=== PATIENT | male | born 1990 | race Caucasian/White ===

== ENCOUNTER 2020-03-03 12:24 | Emergency (ER) | payer MEDICAID, OTHER ==
[~2020-03-03] VITALS: Ht 177.8 cm; Wt 90.7 kg
[~2020-03-03 12:24] MED LIST: CITA10TA9; HYDR-3980; NEO/5DRO18; PANT40TA49
--- NOTE | 2020-03-03 12:25 | NUR ---
BIB [facility] FROM HOME,ETOH, "WANTS HIS MOM" PER EMS. VS CHECKED. AWAITING MD SHARMA.
--- NOTE | 2020-03-03 12:30 | NUR ---
SEEN BY Manjula
--- NOTE | 2020-03-03 12:39 | NUR ---
[facility]
[2020-03-03] MEDS ORDERED: FOLIC ACID 1 MG TABLET PO ONE (13:30)
[2020-03-03] MEDS ORDERED: IV NS 0.9% 1,000 ML IV ONE (13:30)
[2020-03-03] MEDS ORDERED: THIAMINE HCL 100 MG TABLET PO ONE (13:30)
[2020-03-03] MEDS ORDERED: FOLIC ACID 1 MG TABLET ONE (13:36)
[2020-03-03] MEDS ORDERED: THIAMINE HCL 100 MG TABLET ONE (13:36)
--- NOTE | 2020-03-03 14:00 | NUR ---
This SW met with the patient at bedside. Patient is here for alcohol withdrawal. Patient is a 29 year-old male. Patient is able to make needs known at this time. Patient was receptive to speaking with this SW. Patient reported to this SW that he has been drinking several times a day and reported drinking 7 beers this morning. Patient denies drug and cigarette use. Patient reported pain in his stomach and asked this SW to notify RN after this assessment is over. Patient reported to this SW that he has felt sad and isolated due to the COVID-19 pandemic. Patient denied suicidal and homicidal ideation. Patient denied visual and auditory hallucinations. Patient and SW discussed community resources including substance use programs and mental health clinics, patient was receptive to receiving them. Patient was cooperative and calm throughout this assessment. Patient able to make needs known. No further SS interventions are needed at this time. SW provided the following resources to this patient: Substance Abuse resources provided included: [facility] Substance Abuse Self-Helpline ([facility]) ; [facility] [address] [facility]. [place] [address] ; [facility] [address] [facility] [address] ; [facility] [address] [facility] [id number] ; [facility] [address] [facility] [address] ; [facility] [address] [facility] [address] ; [facility] [address] [facility] [address] ; [facility] Substance Abuse Helpline([facility] ; [facility] ; [facility] [place]; [facility] [place]; [facility] [place]; [facility] [place]; [facility]; [facility]; [facility], [facility]. Ramon Mary; Alcoholics Anonymous -[facility]; [facility] ; Marijuana Anonymous [facility]; Narcotics Anonymous www.na.org. Mental Health resources provided: [facility] [address] [place] [address] ; [facility] [address] [facility] [address], [place] [address] ; [facility] [address] [place] [address] ; [facility] [address] [place] [address] Healthcare Clinics: [facility] [address] [facility], [address] [place]. [place] ; [facility] [address] [facility] [address] [place] [address]; [facility] [address] [facility] [place] [address] [phone]
--- NOTE | 2020-03-03 14:04 | NUR ---
TERESA BLUM [phone]
--- NOTE | 2020-03-03 15:31 | NUR ---
CALLED [facility] [phone] MOM, SHE WILL BE HERE IN 20 MINS TO [employer].
--- NOTE | 2020-03-03 16:32 | NUR ---
patient able to ambulate w steady gait, would like to be discharged
--- NOTE | 2020-03-03 16:41 | NUR ---
Patient discharged to home in stable condition. Written and verbal after care instructions given. Patient verbalizes understanding of instruction. Patient ambulatory with steady gait. Refused to sign DC paper.
[2020-03-03 16:43] VITALS: BP 136/84
== END 2020-03-03 16:43 | disposition home or self-care (01) ==
LOC: ER 12:29
DX: F10.229 Alcohol dependence with intoxication, unspecified (principal); F32.9 Major depressive disorder, single episode, unspecified; E86.0 Dehydration; F17.200 Nicotine dependence, unspecified, uncomplicated; E11.9 Type 2 diabetes mellitus without complications; Z60.2 Problems related to living alone; Z79.899 Other long term (current) drug therapy; Y90.9 Presence of alcohol in blood, level not specified
CPT/HCPCS: 96360; 99283; J7030 ×2

== ENCOUNTER 2023-05-03 03:29 | Emergency (ER) | payer OTHER ==
[~2023-05-03] VITALS: Ht 177.8 cm; Wt 90.7 kg
[2023-05-03] MEDS ORDERED: ONDANSETRON HCL/PF 4 MG/2 ML VIAL ONE (03:45)
[2023-05-03] MEDS ORDERED: MORPHINE SULFATE INJ 4 MG/ML DISP.SYRIN ONE ×2 (03:45→04:44)
[2023-05-03] MEDS: IV NS 0.9% 1,000 ML BAG IV ONE (03:53)
[2023-05-03] MEDS: MORPHINE SULFATE INJ 2 MG/ML DISP.SYRIN IV ONE ×2 (03:54→04:51)
[2023-05-03] MEDS: ONDANSETRON HCL/PF 4 MG/2 ML VIAL IVP ONE (03:54)
[2023-05-03] MEDS ORDERED: PANTOPRAZOLE 40 MG VIAL ONE (04:00)
[2023-05-03] MEDS ORDERED: OCTREOTIDE 100 MCG/ML VIAL ONE (04:01)
[2023-05-03] MEDS ORDERED: OCTREOTIDE 500 MCG/ML VIAL ONE (04:02)
[2023-05-03 04:10] LABS: BASOPHILS % (AUTO) 0.6 % (0.0-2.0); EOSINOPHILS # (AUTO) 0.3 K/uL (0.0-0.7); EOSINOPHILS % (AUTO) 3.9 % (0.0-6.0); HEMATOCRIT 44 % (39-51); HEMOGLOBIN 15.5 g/dL (13.5-17.5); LYMPHOCYTES # (AUTO) 2.8 K/uL (0.8-4.8); LYMPHOCYTES % (AUTO) 36.6 % (20.0-44.0); MEAN CORPUSCULAR HEMOGLOBIN 31 PG (26.0-33.0); MEAN CORPUSCULAR HGB CONC 36 g/dl (31.0-36.0); MEAN CORPUSCULAR VOLUME 87 fL (80-96); MONOCYTES # (AUTO) 0.4 K/uL (0.1-1.30); MONOCYTES % (AUTO) 5.5 % (2.0-12.0); NEUTROPHILS # (AUTO) 4.1 K/uL (1.8-8.9); NEUTROPHILS % (AUTO) 53.4 % (43.0-81.0); PLATELET COUNT (AUTO) 162 K/uL (150-450); RED BLOOD CELL COUNT(AUTO) 5.04 MIL/uL (4.5-6.0); RED CELL DISTRIBUTION WIDTH 13.1 % (11.5-15.0); WHITE BLOOD COUNT (AUTO) 7.8 K/uL (4.3-11.0)
[2023-05-03] MEDS: OCTREOTIDE 50 MCG/ML AMPUL IV ONE (04:10)
[2023-05-03] MEDS: PANTOPRAZOLE 80 MG in IV NS 0.9% 100 ML IV ONE (04:10)
[2023-05-03 04:31] LABS: INR 0.98 (0.91-1.10); PARTIAL THROMBOPLASTIN TIME 25.3 SEC (24.3-34.3); PROTHROMBIN TIME 10.4 SECS (9.2-11.1)
[2023-05-03] MEDS: PANTOPRAZOLE 80 MG in IV NS 0.9% 500 ML IV ONE (04:35)
[2023-05-03 04:40] LABS: ALBUMIN 4.1 g/dL (3.4-5.0); BILIRUBIN,DIRECT 0.1 mg/dL (0.0-0.2); BILIRUBIN,TOTAL 0.5 mg/dL (0.2-1.0); CALCIUM, SERUM 8.5 mg/dL (8.5-10.1); CREATININE 0.7 mg/dL (0.6-1.3); POTASSIUM 3.7 mmol/L (3.5-5.1); TOTAL PROTEIN, SERUM 7.6 g/dL (6.4-8.2)
[2023-05-03] MEDS: OCTREOTIDE 1,250 MCG in IV NS 0.9% 250 ML IV ONE (04:50)
[2023-05-03 05:44] VITALS: BP 127/76; TEMP 98; O2SAT 98
== END 2023-05-03 05:45 | disposition left against medical advice (07) ==
LOC: ER 03:35
DX: K92.2 Gastrointestinal hemorrhage, unspecified (principal); F10.129 Alcohol abuse with intoxication, unspecified; R10.13 Epigastric pain; F17.200 Nicotine dependence, unspecified, uncomplicated; Z79.899 Other long term (current) drug therapy
CPT/HCPCS: 99285; 74176; 96365; 96375; 96368; 96376; 85025; 80048; 83690; 80076; 36415; 85730; 86850; J2270 ×2; J2405; J7030 ×3; J7050 ×2; J7040; C9113 ×2; J2354 ×4; A4223 ×3

== ENCOUNTER 2024-03-27 17:55 | Emergency (ER) | payer OTHER ==
[~2024-03-27] VITALS: Ht 167.6 cm; Wt 90.7 kg
[2024-03-27] MEDS: ONDANSETRON HCL/PF 4 MG/2 ML VIAL IVP ONE (20:30)
[2024-03-27] MEDS: IV NS 0.9% 1,000 ML BAG IV ONE ×2 (20:30→23:30)
[2024-03-27 20:32] LABS: BASOPHILS % (AUTO) 0.4 % (0.0-2.0); EOSINOPHILS % (AUTO) 0.4 % (0.0-6.0); HEMATOCRIT 44 % (39-51); HEMOGLOBIN 15.5 g/dL (13.5-17.5); LYMPHOCYTES # (AUTO) 1.3 K/uL (0.8-4.8); LYMPHOCYTES % (AUTO) 14.8 % (20.0-44.0); MEAN CORPUSCULAR HEMOGLOBIN 31 PG (26.0-33.0); MEAN CORPUSCULAR HGB CONC 35 g/dl (31.0-36.0); MEAN CORPUSCULAR VOLUME 87 fL (80-96); MONOCYTES # (AUTO) 0.2 K/uL (0.1-1.30); NEUTROPHILS # (AUTO) 7.2 K/uL (1.8-8.9); NEUTROPHILS % (AUTO) 82.4 % (43.0-81.0); PLATELET COUNT (AUTO) 253 K/uL (150-450); RED BLOOD CELL COUNT(AUTO) 5.07 MIL/uL (4.5-6.0); RED CELL DISTRIBUTION WIDTH 13.7 % (11.5-15.0); WHITE BLOOD COUNT (AUTO) 8.7 K/uL (4.3-11.0)
[2024-03-27 21:03] LABS: CREATININE 1.4 mg/dL (0.6-1.3); POTASSIUM 3.9 mmol/L (3.5-5.1)
[2024-03-27] MEDS ORDERED: ONDANSETRON HCL/PF 4 MG/2 ML VIAL ONE (21:05)
[2024-03-27 21:06] LABS: ACETONE, SERUM NEGATIVE (NEGATIVE)
[2024-03-27 21:15] LABS: ALBUMIN 3.8 g/dL (3.4-5.0); BILIRUBIN,DIRECT 0.1 mg/dL (0.0-0.2); BILIRUBIN,TOTAL 0.3 mg/dL (0.2-1.0); TOTAL PROTEIN, SERUM 8.3 g/dL (6.4-8.2)
[2024-03-27 21:34] LABS: ABG OXYGEN SATURATION 90.8 % (94.0-98.0); ABG PCO2 31.1 mmHg (35.0-48.0); ABG PH 7.315 (7.350-7.450); ABG PO2 67.9 mmHg (83.0-108.0); ABG TOTAL HEMOGLOBIN 15.8 G/dL (13.5-17.5); MetHb 0.1 % (0.0-1.5); O2Hb 89.8 % (94.0-97.0); SITE, ABG RIGHT RADIAL
[2024-03-27 21:49] LABS: ACETAMINOPHEN <10 ug/ml (10-30); ALCOHOL, BLOOD 338 mg/dL (0-10); SALICYLATE 1.4 mg/dL (2.8-20.0)
[2024-03-27] MEDS: INSULIN REGULAR, HUMAN 100 UNIT/ML 10 ML VIAL SQ ONE (23:30)
[2024-03-27] MEDS ORDERED: INSULIN REGULAR, HUMAN 100 UNIT/ML 10 ML VIAL ONE (23:51)
[2024-03-28] MEDS ORDERED: MAGNESIUM HYDROXIDE 30 ML UDC PO PRN (00:30)
[2024-03-28] MEDS ORDERED: Z GUARD REMEDY 4 OZ OINT TP PRN (00:30)
[2024-03-28] MEDS ORDERED: DEXTROSE 50%-WATER 50 ML DISP.SYRIN IV PRN (00:30)
[2024-03-28] MEDS ORDERED: IV NS 0.9% 1,000 ML IV PRN (00:30)
[2024-03-28] MEDS ORDERED: ACETAMINOPHEN 325 MG TABLET PO PRN (00:30)
[2024-03-28] MEDS ORDERED: MAG HYDROX/AL HYDROX/SIMETH 30 ML UDC PO PRN (00:30)
[2024-03-28] MEDS ORDERED: ONDANSETRON HCL/PF 4 MG/2 ML VIAL IVP PRN (00:30)
[2024-03-28] MEDS ORDERED: ZOLPIDEM TARTRATE 5 MG TABLET PO PRN (00:30)
[2024-03-28] MEDS: INSULIN REGULAR, HUMAN 100 UNIT/ML 3 ML VIAL SQ PRN (01:00)
[2024-03-28] MEDS: BLOOD SUGAR DIAGNOSTIC 1 EACH STRIP IN SCH (01:00)
[2024-03-28] MEDS ORDERED: LORAZEPAM INJ 2 MG/ML VIAL IV PRN (01:00)
[2024-03-28 01:32] LABS: APPEARANCE,URINE CLEAR (CLEAR); BILIRUBIN,URINE NEGATIVE (NEGATIVE); BLOOD, URINE 1+ Ery/uL (NEGATIVE); COLOR,URINE YELLOW (YELLOW); KETONES,URINE 1+ mg/dL (NEGATIVE); LEUKOCYTE ESTERASE ,URINE NEGATIVE (NEGATIVE); NITRITE, URINE NEGATIVE (NEGATIVE); PH,URINE 5.5 (5.0-8.0); PROTEIN,URINE NEGATIVE (NEGATIVE); UGLUCOSE 3+ mg/dL (NEGATIVE); UROBILINOGEN,URINE 0.2 EU/dL (0.2)
[2024-03-28 01:33] LABS: ADD URINE CULTURE NO; BACTERIA,URINE Rare /HPF (None Seen); SQUAMOUS EPITHELIAL CELL,UR Few /HPF (None Seen); WBC,URINE 0-2 /HPF (0-3)
[2024-03-28 01:50] LABS: AMPHETAMINE, URINE NEGATIVE (NEGATIVE); BARBITURATE, URINE NEGATIVE (NEGATIVE); BENZODIAZEPINE, URINE NEGATIVE (NEGATIVE); CANNABINOID, URINE NEGATIVE (NEGATIVE); COCCAINE, URINE NEGATIVE (NEGATIVE); OPIATE, URINE NEGATIVE (NEGATIVE); PHENCYCLIDINE SCREEN,URINE NEGATIVE (NEGATIVE)
[2024-03-28 02:48] VITALS: BP 118/70; TEMP 98.8; O2SAT 91
[2024-03-28] MEDS ORDERED: PANTOPRAZOLE 40 MG TABLET.DR PO SCH (07:30)
== END 2024-03-28 02:49 | disposition left against medical advice (07) ==
LOC: ER 17:56
DX: F10.129 Alcohol abuse with intoxication, unspecified (principal); E87.20 Acidosis, unspecified; E11.65 Type 2 diabetes mellitus with hyperglycemia; F17.200 Nicotine dependence, unspecified, uncomplicated; N17.9 Acute kidney failure, unspecified; Z68.32 Body mass index [BMI] 32.0-32.9, adult; Z87.19 Personal history of other diseases of the digestive system; Y90.8 Blood alcohol level of 240 mg/100 ml or more
CPT/HCPCS: 99285; 96372 ×2; 96374; 96361; 82803; 85025; 80048; 82010; 83690; 80076; 36415; 82962 ×3; 36600; 80143; 80320; 80179; 80307; 81001; J1815; J2405; J7030; G0480